=== PATIENT | male | born 1990 | race Caucasian/White ===

== ENCOUNTER 2018-12-29 12:21 | Emergency (ER) | payer SELFPAY ==
[~2018-12-29] VITALS: Ht 172.7 cm; Wt 90.7 kg
[2018-12-29 12:40] VITALS: BP 134/80
[2018-12-29] MEDS ORDERED: DOXY100C43 PO (13:13)
== END 2018-12-29 13:25 | disposition home or self-care (01) ==
LOC: ER 12:21
DX: L73.9 Follicular disorder, unspecified (principal)
CPT/HCPCS: 99283

== ENCOUNTER 2020-03-27 16:03 | Emergency (ER) | payer MEDICAID ==
[~2020-03-27] VITALS: Ht 175.3 cm; Wt 83.7 kg
[2020-03-27 16:13] VITALS: BP 123/87
== END 2020-03-27 18:12 | disposition home or self-care (01) ==
LOC: ER 16:03
DX: M79.641 Pain in right hand (principal); X50.9XXA Other and unspecified overexertion or strenuous movements or postures, initial encounter; Y93.89 Activity, other specified; Y92.89 Other specified places as the place of occurrence of the external cause; Y99.8 Other external cause status
CPT/HCPCS: 73130; 99283

== ENCOUNTER 2020-10-10 14:43 | Emergency (ER) | payer MEDICAID, OTHER | END 2020-10-10 19:13 | disposition left against medical advice (07) | LOC: ER 14:43 | DX: R12 Heartburn (principal); Z53.21 Procedure and treatment not carried out due to patient leaving prior to being seen by health care provider ==

== ENCOUNTER 2024-10-15 18:00 | Emergency (ER) | payer MEDICAID ==
[~2024-10-15] VITALS: Ht 172.7 cm; Wt 88.6 kg
[~2024-10-15 18:00] MED LIST: CEPH-585 PO; SULF1TAB45 PO
[2024-10-15 18:05] VITALS: BP 157/86; PULSE 107; RESP 16; TEMP 98.5; O2SAT 100
[2024-10-15] MEDS ORDERED: ONDA-243 PO (18:50)
--- NOTE | 2024-10-15 18:51 | Physician Documentation ---
History of Present Illness ~ Chief Complaint: Multiple Medical Complaints Stated Complaint: CELLULITIS Time Seen by MD: 18:17 Primary Medical Doctor: NO PMD HPI 33-year-old male returns to the ED with ongoing lower extremity complaints. His left lower extremity currently is not draining and has somewhat improved since the last time he was seen here in the ED. currently has 5-7 days' worth of antibiotics left. He is also complaining of some sort of blister on his left wrsit Day of Onset: Oct 15, 2024 Tetanus witin 5 years: Yes (2018) Medication Reconciliation Allergies: Coded Allergies: No Known Allergies (Unverified , 10/11/24) Scheduled Cephalexin*Monohydrate* (Keflex*), 1 CAP PO QID Sulfamethoxazole/Trimethoprim (Septra Ds Tab), 1 TAB PO Q12H Scheduled PRN ONDANSETRON ODT 4mg tablet (Ondansetron Odt), 1 TAB PO Q6H PRN PRN for ramiro sea/vomiting Past Medical History Past Medical History: No Pertinent History Past Surgical History: no surgical history Smoking Status: Current every day smoker Drug Use: none Lives with: Family Lives In: Home Occupation: employed Review of Systems All Other Systems at this time: Reviewed and Negative ROS As stated above in the HPI, otherwise all systems are reviewed and negative. Physical Exam Vital Signs: Temperature: 98.5, Source: Temporal, Heart Rate: 107, Respiratory Rate: 16, BP: 157/86, Pulse Oximetry: 100, Weight: 88.600 Physical Exam General: Alert, no apparent distress. HEENT: PERRL, EOMI, no injection, moist mucous membranes. Extremities: Wound largely improved with decreased erythema. The left lower extremity no drainage Neurologic: Oriented x4. Psychiatric: Normal mood and affect. Skin: Normal color, warm and dry. No edema, no ecchymosis. Progress Results/Orders Results/Orders Vital Signs 10/15/24 18:05 Temp 98.5 Pulse 107 Resp 16 B/P (MAP) 157/86 Pulse Ox 100 Medical Decision Making Findings I am largely confused on what brought the patient back to the ED this evening as his left lower extremity is is grossly improved. He may note of blisters on his left wrist which were unremarkable during exam. He is hemodynamically stable and has not improving lower leg infection. I advised the patient can to continue taking antibiotics to completely alleviate his symptoms. To his complaint about nausea I advised him to take his antibiotics with food I also sent him home with Zofran General Diff Dx:Considerations: Include: Abrasion, Contusion, Fracture, Hemat anupama, Laceration, Malunion, Neurovascular injury, Open fracture, Sprain, Ulcer, Other Departure Disposition: HOME / SELF CARE / HOMELESS Impression: Primary Impression: Cellulitis Additional Impressions: Insect bites Nausea Condition: Stable Discharge Instructions: Cellulitis, Adult, [id number] Additional Instructions: Continue taking antibiotics with food. He can take Zofran that I prescribed to help with the nausea if you develop any further symptoms Referrals: NO PRIMARY CARE PROVIDER (PCP) Prescriptions ONDANSETRON ODT 4mg tablet (ONDANSETRON ODT) 4 Mg Tab.rapdis 1 TAB PO Q6H PRN PRN for nausea/vomiting for 4 Days, #16 TAB 0 Refills Prov: TIFFANIE BARAJAS NP 10/15/24 Signature Scribe Signature: d Attestation: Scribed for Tiffanie Barajas Optomechanical Engineer by Tiffanie Barajas - SARAHY . 10/15/24 22:55 TIFFANIE BARAJAS NP Oct 15, 2024 18:51
== END 2024-10-15 19:15 | disposition home or self-care (01) ==
LOC: ER 18:01
DX: S50.912A Unspecified superficial injury of left forearm, initial encounter (principal); L03.116 Cellulitis of left lower limb; R11.0 Nausea; F17.200 Nicotine dependence, unspecified, uncomplicated; Z79.899 Other long term (current) drug therapy; W57.XXXA Bitten or stung by nonvenomous insect and other nonvenomous arthropods, initial encounter; Y93.89 Activity, other specified; Y92.89 Other specified places as the place of occurrence of the external cause; Y99.8 Other external cause status
CPT/HCPCS: 99283

== ENCOUNTER 2025-01-18 00:43 | Emergency (ER) | payer MEDICAID ==
[~2025-01-18] VITALS: Ht 172.7 cm; Wt 85.0 kg
[~2025-01-18 00:43] MED LIST changes: +ONDA-243 PO; -SULF1TAB45 PO
[2025-01-18 00:47] VITALS: BP 159/100; PULSE 95; RESP 16; TEMP 97.9; O2SAT 99
[2025-01-18] MEDS ORDERED: CEPH-585 PO (01:12)
--- NOTE | 2025-01-18 01:12 | Physician Documentation ---
History of Present Illness ~ Chief Complaint: Laceration Stated Complaint: FINGER LAC Time Seen by MD: 00:56 Primary Medical Doctor: NO PMD HPI This is a 34-year-old gentleman who presents for evaluation of laceration to the right index finger. Occurred 15 minutes prior to arrival while he was cutting something with a his pocket knife. Reports an immediate onset pain. Bleeding was controlled on scene. Denies any other injury. Denies my concerns about tobacco, alcohol or illicit substances use Tetanus Within 5 Years: Yes (2018) Medication Reconciliation Allergies: Coded Allergies: No Known Allergies (Unverified , 01/18/25) Scheduled Cephalexin*Monohydrate* (Keflex*), 1 CAP PO QID Cephalexin*Monohydrate* (Keflex*), 1 CAP PO Q6H Scheduled PRN ONDANSETRON ODT 4mg tablet (Ondansetron Odt), 1 TAB PO Q6H PRN PRN for nausea/vomiting Past Medical History Past Medical History: No Pertinent History Past Surgical History: no surgical history Drug Use: none Lives with: Family Lives In: Home Occupation: employed Review of Systems ROS 10 point review of systems was performed and unless noted above in HPI is negative for acute process/complaint. Physical Exam Vital Signs: Temperature: 97.9, Source: Temporal, Heart Rate: 95, Respiratory Rate: 16, BP: 159/100, Pulse Oximetry: 99, Weight: 85.000 Oxygen Flow Rate: 0 Physical Exam Physical examination: GENERAL: Awake, alert, oriented, GCS 15, no apparent distress, non-toxic appearing, answers questions, follows commands appropriately. HEENT: Atraumatic, normocephalic, pupils equal, extraocular muscles intact Active gross movements, sclerae anicteric, mucus membranes moist, no stridor. NECK: Midline, no JVD CARDIOVASCULAR: Good skin perfusion without evidence of pallor, mottling. PULMONARY: Nonlabored, symmetric chest rise, no audible wheezing, no accessory muscle use, no respiratory distress, speaking in full sentences. GASTROINTESTINAL: Not distended. NEUROLOGIC: Lucid with normal mental status. Normal facial symmetry. Moves all extremities symmetrically and with purpose. No truncal ataxia. Speech is fluid without evidence of dysarthria or aphasia, no focal deficits appreciated. EXTREMITIES: Acute deformities Skin: warm, dry PSYCHIATRIC: Normal affect, normal insight, normal concentration. Focused exam: Oblique laceration 1.5 cm to the radial aspect of the index digit of the right hand. Full-thickness. Neurovascularly intact distally. No active bleeding. Procedures Laceration/Wound Repair Laceration : Procedure Note Standard Lac Repair Performed by: Jame Almaraz DO Authorized by: Jame Almaraz DO Consent: Verbal consent obtained. Risks and benefits: risks, benefits and alternatives were discussed Consent given by: patient or guardian Patient or guardian understanding: patient or guardian states understanding of the procedure being performed Patient or guardian consent: the patient or guardian's understanding of the pr ocedure matches consent given Patient identity confirmed: arm band and verbally with patient Time out: Immediately prior to procedure a "time out" was called to verify the correct patient, procedure, equipment, instructional support services director and site/side marked as required. Body area: Index finger of right hand Laceration length: 1.5 cm Foreign bodies: no foreign bodies Tendon involvement: none Nerve involvement: none Vascular damage: no Anesthesia: local infiltration Local anesthetic: lidocaine with epinephrine Anesthetic total: 4 ml Patient sedated: no Preparation: Patient was prepped and draped in the usual sterile fashion. Irrigation solution: saline Irrigation method: jet lavage and syringe Amount of cleaning: extensive Debridement: none Degree of undermining: none Skin closure: 3-0 nylon Number of sutures: 4 Technique: interupted Approximation: close Approximation difficulty: simple Dressing: Open to air Patient tolerance: Patient tolerated the procedure well with no immediate complications. Progress Results/Orders Results/Orders Completed Orders - JAME ALMARAZ DO Lidocaine 1% 30ml Vial (Xylocaine 1% Via (01/18/25 01:03) Tetanus/Pertuss/Diph Acell/Pf (Boostrix (01/18/25 01:15) Vital Signs 01/18/25 00:47 Temp 97.9 Pulse 95 Resp 16 B/P (MAP) 159/100 Pulse Ox 99 O2 Flow Rate 0 Medical Decision Making Findings Facility Status: ED Holds, [facility] process The plan was discussed with the patient, who demonstrates clear understanding of the plan and is in agreement with the plan unless otherwise noted in the chart. All questions have been answered, all concerns were addressed unless otherwise documented. I was available throughout their ED stay for frequent reassessment and questions. Differential Diagnoses (considered and possible or likely): [Finger laceration, acute traumatic pain, encounter for tetanus toxoid administration] ??Differential Diagnoses (considered and unlikely, not requiring evaluation currently): [No evidence of neurovascular injury] MDM Data Please see [facility] for the following: Independent Historians and external Records Review. Historian: [Patient] Independent Historians: ?[None] Medication Management: [Reviewed medication list] Social History and determinants: [Reviewed] Please see the body of the note for the following: Any independent interpretations of ECG, imaging studies. All vitals signs/haemodynamics, ordered tests were independently reviewed and interpreted by myself. Nursing triage complaint and vitals reviewed, additional nursing notes were reviewed as available and I agree unless otherwise noted or documented in contradiction in the chart Vital Signs: Independently reviewed Labs: Independently interpreted Imaging: Independently interpreted Old Medical Records: Independently reviewed, see [facility] for relevant summary and information Additionally notably showing: [Hemodynamically stable] Tests considered but not ordered include: [Hematologic workup and imaging has been considered but does not appear to be necessary given clinical nature of diagnosis] Social Determinants of Health Impact: Patient was evaluated in [facility] [place] to healthcare due to below par ratio of patient to medical providers. [] Comorbid Conditions Impacting Present Evaluation and Care/Treatment: [None] Management Discussions with other Healthcare Providers: [None] Treatment and Disposition Medication Management (Given or considered): []. See EMR for details Consideration for Hospitalization/Escalation/Deescalation of Care: Admission for observation has been considered, [however the patient is able to tolerate p.o., their symptoms are controlled, they are able to rely on oral medications, and their chief complaint/diagnosis can be managed on outpatient basis.] ?ED Course:?[Laceration was repaired. Patient tolerated procedure well.] ?Shared decision making:?[Patient is hemodynamically stable for discharge home with follow with their primary care provider. [ ] Specific and cautious return precautions provided and discussed with full understanding. Any incidental findings were also discussed and follow up recommendations given. [] All questions answered. Patient/family were able to verbalize back return precautions. Patient/family agree to plan. Copies of imaging and laboratory studies were provided.] Code status:?FULL Please see the full Electronic Medical Record for full details of nursing documentation, medications list, other records of complete past medical history and conditions, vital signs, laboratory studies, and any radiologic study interpretations by radiologists. Portions of this note were completed using [employer] dictation software and as a result there may exist minor errors in spelling. I have reviewed elements of past family and social history and agree as included in note. Departure Disposition: 01 HOME / SELF CARE / HOMELESS Impression: Primary Impression: Finger laceration Additional Impressions: Tetanus toxoid inoculation Acute pain due to injury Condition: Improved Discharge Instructions: Laceration Care, Adult, [id number] Additional Instructions: Sutures out in 5-7 days Referrals: NO PRIMARY CARE PROVIDER (PCP) Prescriptions Cephalexin*Monohydrate* (Keflex*) 500 Mg Capsule 1 CAP PO Q6H for 10 Days, #40 CAP Prov: JAME ALMARAZ DO 01/18/25 Education Educated: Patient Educated regarding: diagnosis, treatment, prognosis, need for follow up Signature Scribe Signature: No scribe Attestation: Date: Jan 18, 2025 Time: 01:12 This note accurately reflects clinical decisions, work performed by myself, DO SUNG Benites NICHOLAS M DO Jan 18, 2025 01:12
[2025-01-18] MEDS: TETanus/Pertussis (Acell)/Diphther VAC/PF (Tdap-Adult) 0.5ml syringe IMVAC ONE (01:18)
[2025-01-18] MEDS: LIDOcaine 1% 30ml preserv. free vial SQ STA (01:18)
== END 2025-01-18 01:32 | disposition home or self-care (01) ==
LOC: ER 00:44
DX: S61.210A Laceration without foreign body of right index finger without damage to nail, initial encounter (principal); G89.11 Acute pain due to trauma; W26.0XXA Contact with knife, initial encounter; Y93.89 Activity, other specified; Y92.89 Other specified places as the place of occurrence of the external cause; Y99.8 Other external cause status
CPT/HCPCS: 12001; 99283

== ENCOUNTER 2025-01-27 21:36 | Emergency (ER) | payer MEDICAID ==
[~2025-01-27] VITALS: Ht 175.3 cm; Wt 84.5 kg
[2025-01-27 21:45] VITALS: BP 151/98; PULSE 95; RESP 16; TEMP 98.5; O2SAT 100
[2025-01-27] MEDS ORDERED: IBUP-1984 PO (22:16)
[2025-01-27] MEDS ORDERED: CHLO118M PO (22:16)
[2025-01-27] MEDS ORDERED: PENI500T2 PO (22:16)
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
[2025-01-27] MEDS: penicillin V potassium 500mg tablet PO ONE (22:28)
[2025-01-27] MEDS: ibuprofen tablet 400 MG TABLET PO ONE (22:28)
== END 2025-01-27 22:30 | disposition home or self-care (01) ==
LOC: ER 21:36
DX: K02.9 Dental caries, unspecified (principal); K00.6 Disturbances in tooth eruption
CPT/HCPCS: 99283

== ENCOUNTER 2025-03-08 21:30 | Emergency (ER) | payer MEDICAID ==
[~2025-03-08] VITALS: Ht 175.3 cm; Wt 77.3 kg
[~2025-03-08 21:30] MED LIST changes: +CHLO118M PO
--- NOTE | 2025-03-08 23:22 | RADIOLOGY REPORT ---
EXAM: DI KNEE, COMP 4 VW MIN HISTORY: KNEE PAIN RIGHT TECHNIQUE: DI KNEE, COMP 4 VW MIN COMPARISON: None FINDINGS/IMPRESSION: No acute fracture. No evidence of dislocation. No significant joint effusion.
--- NOTE | 2025-03-08 23:47 | Physician Documentation ---
History of Present Illness ~ Chief Complaint: Knee Pain Stated Complaint: KNEE PAIN Time Seen by MD: 23:27 Primary Medical Doctor: NO PMD HPI This is a 34-year-old male who presents with one day of right-sided knee pain, patient reports that he twisted his knee after he slipped on a tile floor yesterday, patient reports that he was able to walk and bear weight on the knee though over the last day it has become more painful to walk and bear weight on. Patient reports no other acute symptoms or concerns including no other injuries. Tetanus witin 5 years: Yes (last month) Medication Reconciliation Allergies: Coded Allergies: No Known Allergies (Unverified , 01/27/25) Scheduled Cephalexin*Monohydrate* (Keflex*), 1 CAP PO QID Chlorhexidine Gluconate (Peridex), 15-30 ML PO Q8H Ibuprofen (Ibuprofen), 1 TAB PO Q8H Scheduled PRN ONDANSETRON ODT 4mg tablet (Ondansetron Odt), 1 TAB PO Q6H PRN PRN for nausea/vomiting Past Medical History Past Medical History: No Pertinent History Past Surgical History: no surgical history Drug Use: none Lives with: Family Lives In: Home Occupation: employed Review of Systems ROS As stated above in the HPI, otherwise all systems are reviewed and negative. Physical Exam Vital Signs: Temperature: 98.0, Source: Oral, Heart Rate: 96, Respiratory Rate: 16, BP: 120/81, Pulse Oximetry: 99, Weight: 77.270 Oxygen Flow Rate: 0 Physical Exam VITALS: Reviewed and as above. GENERAL: Alert, nontoxic appearing, no apparent distress. RESPIRATORY: No increased work of breathing, no respiratory distress, speaking in full clear sentences CV: Brisk capillary refill to right foot, pedal pulse intact to right foot MUSCULOSKELETAL: Minimal swelling to right knee as compared to left, no obvious deformity, tenderness to lateral and anterior aspects, no tenderness to other aspects, pain elicited with range of motion, no micro motion tenderness to right knee SKIN: No erythema or ecchymosis to right knee NEURO: Sensation intact to right foot Progress Results/Orders Results/Orders Orders - CRUZITO MITCHELL Ortho Orders (03/08/25 ) Completed Orders - CRUZITO MITCHELL Ketorolac Trometh 15mg/Ml Vial (Toradol (03/08/25 23:55) Vital Signs 03/08/25 03/09/25 21:59 00:11 Temp 98.0 98.6 Pulse 96 90 Resp 16 18 B/P (MAP) 120/81 118/62 Pulse Ox 99 99 O2 Flow Rate 0 EKG/XRAY/CT/US/VASC/MRI Bone/Soft Tissue X-Ray (Ext.) : Additional Comment Exam: KNEE, COMP 4 VW MIN EXAM: DI KNEE, COMP 4 VW MIN HISTORY: KNEE PAIN RIGHT TECHNIQUE: DI KNEE, COMP 4 VW MIN COMPARISON: None FINDINGS/IMPRESSION: No acute fracture. No evidence of dislocation. No significant joint effusion. Electronically Signed by:DANO CORDOVA MD Date & Time: 03/08/252318 Dictated by: DANO CORDOVA MD Dictation date and time: 03/08/252318 I have reviewed and agree with the radiology report. I have reviewed and interpreted the imaging as: No fracture or dislocation Medical Decision Making Additional information obtaine: N/A Findings This is a 34-year-old male presented with one day of right knee pain after twisting his knee, physical exam demonstrated tenderness to the lateral and anterior aspects of the knee, it was reassuring the limb is neurovascularly intact and imaging did not demonstrate evidence of fracture or dislocation. Patient is otherwise well-appearing with remainder of physical exam benign and no other injuries reported or observed on exam, treatment plan with rest, ice, compression, and elevation. Patient is appropriate for outpatient follow up. Patient provided home care instructions return to care precautions, and follow up instructions which he verbalized understanding of. General Diff Dx:Considerations: Include: Abrasion, Contusion, Fracture, Hematoma, Laceration, Neurovascular injury, Sprain Knee Diff Dx:Considerations: Include: Gout, Laceration, Meniscus injury, Neurovascular injury, Septic, Sprain Ankle Diff Dx:Considerations: Unlikely: Abrasion, Arthritis, Contusion, DJD, Fracture-metatarsal, Fracture-fibula, Fracture-tarsal, Fracture-tibia, Gout, Hematoma, Laceration, Malunion, Neurovascular injury, Nonunion, Open fracture, Osteomyelitis, Rheumatoid arthritis, Sprain, Septic, Ulcer, Other Foot Diff Dx:Considerations: Unlikely: Abrasion, Arthritis, Cellulitis, Contusion, Dislocation, DJD, Fracture-metatarsal, Fracture-phalynx, Fracture- tarsal, Gout, Hematoma, Ingrown toenail, Laceration, Malunion, Neurovascular injury, Open fracture, Paronychia, Puncture, Rheumatoid, Sprain, Septic, Subungual hematoma, Ulcer, Other Toe Diff Dx:Considerations: Unlikely: Abrasion, Cellulitis, Contusion, Dislocation, Felon, Fracture, Hematoma, Laceration, Neurovascular injury, Open fracture, Paronychia, Subungual hematoma, Other Departure Time of Disposition: 23:48 Disposition: 01 HOME / SELF CARE / HOMELESS Impression: Primary Impression: Knee pain Qualified Codes: M25.561 - Pain in right knee Condition: Improved Discharge Instructions: Acute Knee Pain, Adult, RICE Therapy for Routine Care of Injuries Additional Instructions: Please use the prescribed ibuprofen as needed for pain, you may add [id number] Tylenol as needed for breakthrough pain as directed by [id number] packaging. Please use the provided crutches to rest your knee, please see the attached home care instructions for rest, ice, compression, and elevation. Please follow up with your primary care provider in the next few days. Please return to the emergency department for any new or worsening concerning symptoms. Referrals: NO PRIMARY CARE PROVIDER (PCP) Prescriptions Ibuprofen (Ibuprofen) 800 Mg Tablet 1 TAB PO Q8H for pain for 10 Days, #30 TAB 0 Refills Prov: CRUZITO MITCHELL 03/08/25 Education Educated: Patient Educated regarding: diagnosis, treatment, prognosis, need for follow up Signature Scribe Signature: No scribe Attestation: The note accurately reflects work and decisions made by me.LISETTE Neal 03/09/25 12:56 CRUZITO MITCHELL Mar 08, 2025 23:47
[2025-03-08] MEDS ORDERED: IBUP-1986 PO (23:49)
[2025-03-09] MEDS: ketorolac trometh 15mg/ml vial 15 MG/ML ML IM ONE (00:01)
[2025-03-09 00:11] VITALS: BP 118/62; PULSE 90; RESP 18; TEMP 98.6; O2SAT 99
== END 2025-03-09 00:12 | disposition home or self-care (01) ==
LOC: ER 21:30
DX: M25.561 Pain in right knee (principal); Z79.899 Other long term (current) drug therapy; X50.1XXA Overexertion from prolonged static or awkward postures, initial encounter; Y93.89 Activity, other specified; Y92.89 Other specified places as the place of occurrence of the external cause; Y99.8 Other external cause status
CPT/HCPCS: 73564; 96372; 99283; J1885

== ENCOUNTER 2025-03-10 21:36 | Emergency (ER) | payer MEDICAID ==
[~2025-03-10] VITALS: Ht 172.7 cm; Wt 87.0 kg
[~2025-03-10 21:36] MED LIST changes: +IBUP-1986 PO
[2025-03-10 22:01] VITALS: BP 146/84; PULSE 100; RESP 15; TEMP 96.3; O2SAT 100
== END 2025-03-10 23:23 | disposition left against medical advice (07) ==
LOC: ER 21:36
DX: M25.561 Pain in right knee (principal); Z53.21 Procedure and treatment not carried out due to patient leaving prior to being seen by health care provider
CPT/HCPCS: 99281